=== PATIENT | female | born 1960 | race Caucasian/White ===

== ENCOUNTER 2017-07-04 13:42 | Inpatient (IN) ==
--- NOTE | 2017-07-04 16:36 | Emergency Department Note ---
Disposition Clinical Impression: Failure of outpatient treatment Cellulitis Qualifiers: Site of cellulitis: extremity Site of cellulitis of extremity: lower extremity Laterality: left Qualified Code(s): L03.116 - Cellulitis of left lower limb Disposition: Admitted As Inpatient Condition: Fair Referrals: NONE,PCP [Primary Care Provider] - Forms: ED Satisfaction Letter Time of Disposition: 18:13 Extremity Problem HPI - General Chief complaint: ED Extremity Problem,Nontraumatic Stated complaint: Possible DVT left leg Time Seen by Provider: 07/04/17 15:52 Source: patient Limitations: no limitations Nursing Notes Reviewed: Yes Vital Signs Reviewed: Yes - History of Present Illness HPI Narrative: Presents with gradual onset of constant left leg redness and swelling and pain and she has tried clindamycin and Keflex and Bactrim without adequate improvement by the primary care physician and so was sent here for IV antibiotics and admission and she denies any fevers now but has a temperature reaching 103 degrees earlier in the week and she does not have any chest pain or shortness of breath. No previous studies such as a Doppler study had not yet been done. No upper respiratory symptoms, blood in the urine or stool. Social history: No smoking or alcohol or drugs. She is here with her Pain Scale: 4 - Related Data Home Medications Medication Instructions Recorded Confirmed Clindamycin HCl 300 mg PO Q8H 07/04/17 07/04/17 Ibuprofen [Motrin] 400 mg PO Q6HR PRN 07/04/17 07/04/17 Sulfamethoxazole/Trimeth DS 1 each PO BID 07/04/17 07/04/17 [Bactrim DS] Allergies Allergy/AdvReac Type Severity Reaction Status Date / Time No Known Allergies Allergy Verified 07/04/17 16:25 Review of Systems: Constitutional: No fever Vision: No blurred vision ENT: No rhinorrhea Respiratory: No cough Allergic: No allergies : No blood in urine GI: No blood in stool Hematologic: No bruising Dermatologic: + skin rash Musculoskeletal: + pain in the extremities Neuro: No numbness of the extremities Past Medical History - Past Medical History Medical history: Reports: hypertension Psychiatric history: Reports: no psych history - Social History Smoking Status: Former smoker Smokeless Tobacco Status: No Alcohol use: Reports: none Drug use: Reports: none Physical Exam CONSTITUTIONAL: Alert and oriented X3, well-nourished, well appearing, in no apparent distress HEAD: Normocephalic; atraumatic. EYES: PERRL, no scleral icterus. NOSE: The nose is normal in appearance without rhinorrhea RESP: Normal chest excursion with respiration; breath sounds clear and equal bilaterally; no wheezes, rhonchi, or rales CARD: Regular rhythm, without murmurs, rub or gallop ABD: Non-distended; non-tender, soft,without rigidity, rebound or guarding SKIN: Normal for age and race; warm and dry; no apparent lesions Extremities: Left lower extremity does have significant erythema and edema reaching up to the knee. No crepitus with palpation. No fluctuance or necrotic areas. Neurovascular intact. Does have some pain with palpation but not a pain out of proportion - General Limitations: no limitations General appearance: alert Course Vital Signs Temperature 97.9 F 07/04/17 13:56 Pulse Rate 86 07/04/17 13:56 Respiratory Rate 16 07/04/17 13:56 Blood Pressure 133/76 07/04/17 13:56 O2 Sat by Pulse Oximetry 94 07/04/17 13:56 Temperature 97.9 F 07/04/17 13:56 Pulse Rate 74 07/04/17 16:40 Respiratory Rate 14 07/04/17 16:40 Blood Pressure 142/77 07/04/17 16:40 O2 Sat by Pulse Oximetry 98 07/04/17 16:40 Oxygen Delivery Oxygen Delivery Room Air Extremity Problem, Nontraumati - MDM Narrative Medical decision making narrative: Patient will be admitted to the hospital, labs are pending, the patient will be started on intravenous vancomycin. Doppler study is ordered and pending. She is bright and alert and she denies any confusion and does not seem confused while I am in the room. 1636 I did review the patient's lab results with minimal leukocytosis. Doppler study is negative for clot and I did speak with the body technician/painter. The patient will be admitted and has been started on vancomycin. I did speak with the hospitalist who accepted the patient for admission 181 - Medical Records Medical records reviewed: Yes I reviewed the patient's medical records. - Lab Data Lab results reviewed: Yes I reviewed the patient's lab results. Result diagrams: 07/04/17 16:19 07/04/17 16:19 Lab Results 07/04/17 07/04/17 07/04/17 Range/Units 16:19 16:19 16:19 WBC 11.8 H (4.3-11.1) K/mcL RBC 4.30 (3.82-4.97) M/mcL Hgb 12.1 (11.5-15.4) g/dL Hct 37.1 (35.3-44.9) % MCV 86.3 (83.0-100.0) fL MCH 28.1 (28.0-33.3) pg MCHC 32.6 (31.6-35.5) g/dL RDW 14.5 (11.5-14.5) % Plt Count 264 (140-400) K/mcL MPV 10.3 (9.4-12.4) fL Sodium 140 (136-145) mEq/L Potassium 4.0 (3.5-4.5) mEq/L Chloride 105 (98-109) mEq/L Carbon Dioxide 27 (19-29) mEq/L BUN 11 (7-20) mg/dL Creatinine 0.84 (0.57-1.11) mg/dL Est GFR ( Amer) > 60 (> 60) Est GFR (Non-Af Amer) > 60 (> 60) BUN/Creatinine Ratio 13 (6-26) Glucose 96 (70-99) mg/dL Calculated Osmolality 289 (280-300) Lactic Acid 1.7 (0.5-2.2) mmol/L Calcium 9.6 (8.6-10.8) mg/dL - Radiology Data Radiology results reviewed: Yes I reviewed the patient's radiology results.
[2017-07-04 16:42] LABS: Hematocrit 37.1 % (35.3-44.9); Hemoglobin 12.1 g/dL (11.5-15.4); Mean Corpuscular HGB Conc 32.6 g/dL (31.6-35.5); Mean Corpuscular Hemoglobin 28.1 pg (28.0-33.3); Mean Corpuscular Volume 86.3 fL (83.0-100.0); Mean Platelet Volume 10.3 fL (9.4-12.4); Platelet Count 264 K/mcL (140-400); Red Cell Distribution Width 14.5 % (11.5-14.5)
[2017-07-04 16:50] LABS: BUN/Creatinine Ratio 13 (6-26); Blood Urea Nitrogen 11 mg/dL (7-20); Calcium 9.6 mg/dL (8.6-10.8); Carbon Dioxide 27 mEq/L (19-29); Chloride 105 mEq/L (98-109); Glucose 96 mg/dL (70-99); Osmolality,Calculated 289 (280-300); Sodium 140 mEq/L (136-145); eGFR For African Americans > 60 (> 60); eGFR For Non-African Americans > 60 (> 60)
[2017-07-04] MEDS ORDERED: Vancomycin 1,250 MG in D5% in Water 250 ML IVPB ONE (17:15)
[2017-07-04] MEDS ORDERED: Ibuprofen 400 MG TABLET PO ONE (18:34)
[2017-07-04] MEDS ORDERED: Naloxone 0.4 MG/ML INJ IVP PRN (20:01)
--- NOTE | 2017-07-04 20:06 | Internal Med History&Physical ---
<Del Chao J - Last Filed: 07/04/17 20:04> Date of Encounter: 07/04/17 Time of Encounter: 20:04 Assessment and Plan (1) Cellulitis Current visit: Yes Status: Acute Left lower extremity cellulitis, does not appear toxic. Left lower extremity remains swollen, erythematous and painful. Upon my assessment clear drainage noted. Patient reports purulent drainage. Failed outpatient treatment with Keflex and clindamycin and Bactrim. Being admitted for IV antibiotic therapy, Vancomycin with pharmacy to dose for broad-spectrum coverage Wound culture-Narrow antibiotic therapy based on culture results Doppler study completed and negative for blood clot For pain management we will give ibuprofen for mild pain, [place] 5/325 for moderate pain Patient reports itching of the left lower extremity while trying to sleep. Benadryl 25 mg at at bedtime Qualifiers: Site of cellulitis: extremity Site of cellulitis of extremity: lower extremity Laterality: left Qualified Code(s): L03.116 - Cellulitis of left lower limb (2) Failure of outpatient treatment Current visit: Yes Status: Acute See above Internal Medicine - H&P: HPI Chief complaint: Failed outpatient treatment for cellulitis Admitted From: Home Plans for Post Hospital Care: Home History of present illness: Ms. Lyn is a 56 year old female with only past medical history of hypertension. Presents today to [facility] for left lower extremity cellulitis. She reports a gradual onset of left lower leg swelling with multiple wounds which she thought were spider bites. He is being treated by her primary care practitioner for cellulitis. Initial treatment involved Keflex however pain and swelling persisted. She was then placed on clindamycin and Bactrim without adequate improvement. She does admit to left lower extremity is less swollen and painful the beginning of the week. She does not appear toxic at this time. Admits to temperatures with a max of 103 earlier throughout the week for multiple days. She is afebrile at this time. Mild leukocytosis noted at 11.8 being admitted for failed outpatient treatment Past Med Surg Social Fam HX - Past Medical History Medical history: hypertension Psychiatric history: no psych history - Past Surgical History Surgical History: - Social History Smoking Status: Former smoker Smokeless Tobacco Status: No Alcohol use: none Drug use: none - Additional Family History Additional family history: Noncontributory Internal Medicine - H&P: Meds Clindamycin HCl 300 mg PO Q8H 07/04/17 [History] Ibuprofen [Motrin] 400 mg PO Q6HR PRN 07/04/17 [History] Sulfamethoxazole/Trimeth DS [Bactrim DS] 1 each PO BID 07/04/17 [History] 3 Allergy/AdvReac Type Severity Reaction Status Date / Time No Known Allergies Allergy Verified 07/04/17 16:25 All Systems PM: A 10-system review of systems was performed and is negative for pertinent findings except as documented above in the HPI. - Constitutional Constitutional: as per HPI, fatigue, fever(s), no chills, no night sweats - EENT Eyes: no change in vision, no discharge, no pain, no photophobia Ears: no ear discharge, no ear pain, no tinnitus Nose, mouth and throat: no dysphagia, no nasal discharge, no neck pain, no sore throat - Cardiovascular Cardiovascular ROS IM: no chest pain, no diaphoresis, no dyspnea, no lightheadedness, no palpitations, no syncope - Respiratory Respiratory: no cough, no dyspnea, no wheezing, no excessive phlegm production - Gastrointestinal Gastrointestinal: no abdominal pain, no diarrhea, no hematemesis, no hematochezia, no melena, no nausea, no vomiting - Genitourinary Genitourinary: no change in urinary stream, no dysuria, no flank pain, no hematuria - Musculoskeletal Musculoskeletal ROS IM: no joint swelling, no muscle weakness, no numbness, no tingling - Integumentary Integumentary IM: erythema, non-healing lesions, no rash, no unusual bruising Additional comments: Reporting multiple nonhealing skin lesions, cellulitis and purulent drainage with erythematous left lower extremity. - Neurological Neurological ROS: no confusion, no convulsions, no focal weakness, no numbness, no tingling, no tremor(s) - Hematologic/Lymphatic Hematologic/Lymphatic: no easy bruising - Constitutional Vitals: Temp Pulse Resp BP Pulse Ox 99.1 F 82 18 132/87 97 07/04/17 19:21 07/04/17 19:21 07/04/17 19:21 07/04/17 19:21 07/04/17 19:21 General appearance: Present: cooperative, A&O X 3, no acute distress, answers questions appropriately - Head Head exam: Present: atraumatic, normocephalic - Eye Eye exam: Present: EOMI, PERRL, conjuntiva pink, sclera anicteric Pupils: Present: PERRL - Neck Neck exam general surgery: Present: supple, trachea midline. Absent: lymphadenopathy - Respiratory Respiratory exam: Present: CTAB. Absent: accessory muscle use, rales, rhonchi, wheezes - Cardiovascular Cardiovascular exam: Present: RRR, +S1, +S2. Absent: diastolic murmur, gallop, rubs, systolic murmur - GI/Abdominal GI/Abdominal exam: Present: normal bowel sounds, soft, no peritoneal signs. Absent: distended, tenderness - Extremities Exam Extremities exam: Present: tenderness (LLE, venous Doppler study negative for clot), warm, radial pulses palpable and symmetrical. Absent: cyanotic (Well. LLE, venous Doppler study negative for clot), pedal edema Additional comments: Left lower extremity is erythematous and warm and tender. There is some clear drainage noted along posterior lateral calf. No circulatory compromise noted. Venous Doppler negative for VTE - Neurological Exam Neurological exam: Present: CN II-XII intact, oriented X3, no focal deficits. Absent: pronater drift, facial droop, speech deficit - Skin Skin exam: Present: dry, intact Internal Med - H&P Results - Labs CBC & Chem 7: 07/04/17 16:19 07/04/17 16:19 <Rivas Jordan H - Last Filed: 07/04/17 20:32> Date of Encounter: 07/04/17 Internal Medicine - H&P: HPI History of present illness: Ms. Lyn is a 56 year old female All Systems PM: A 10-system review of systems was performed and is negative for pertinent findings except as documented above in the HPI. - Constitutional Vitals: Temp Pulse Resp BP Pulse Ox 99.1 F 82 18 132/87 97 07/04/17 19:21 07/04/17 19:21 07/04/17 19:21 07/04/17 19:21 07/04/17 19:21 Internal Med - H&P Results - Labs CBC & Chem 7: 07/04/17 16:19 07/04/17 16:19 - Attending Attestation Left lower extremity cellulitis that failed outpatient treatment Continue vancomycin IV Hypertension, consider hydralazine IV as needed Order cultures Time spent this admission 40 minutes I have personally performed a face to face evaluation on this patient. I have reviewed and agree with the care plan. History and Exam by me shows:
[2017-07-04] MEDS ORDERED: Acetaminophen 325 MG TABLET PO PRN (20:30)
[2017-07-05] MEDS: *HR* HYDROcodone/Acet 5/325 mg TABLET PO PRN ×3 (01:21→15:55)
[2017-07-05] MEDS: *HR* Heparin 5,000 UNIT/ML VIAL SQ SCH ×2 (05:31→18:55)
[2017-07-05 05:32] LABS: Basophils # 0.1 K/mcL (0.0-0.2); Basophils % 0.8 %; Eosinophils # 0.3 K/mcL (0.0-0.6); Eosinophils % 2.9 %; Hematocrit 36.6 % (35.3-44.9); Hemoglobin 11.6 g/dL (11.5-15.4); Immature Granulocytes % 4.9 % (0-4); Lymphocytes # 2.5 K/mcL (0.6-4.6); Lymphocytes % 22.8 %; Mean Corpuscular HGB Conc 31.7 g/dL (31.6-35.5); Mean Corpuscular Hemoglobin 27.7 pg (28.0-33.3); Mean Corpuscular Volume 87.4 fL (83.0-100.0); Mean Platelet Volume 10.2 fL (9.4-12.4); Monocytes # 0.8 K/mcL (0.0-1.3); Monocytes % 7.7 %; Neutrophils # 6.6 K/mcL (1.6-8.9); Platelet Count 246 K/mcL (140-400); Red Blood Count 4.19 M/mcL (3.82-4.97); Red Cell Distribution Width 14.4 % (11.5-14.5); Segmented Neutrophils % 60.9 %
[2017-07-05 05:50] LABS: Alanine Aminotransferase 52 Units/L (0-55); Albumin 2.6 g/dL (3.5-5.0); Albumin/Globulin Ratio 0.5 (1.1-2.2); Alkaline Phosphatase 107 Units/L (38-126); Aspartate Amino Transferase 23 Units/L (5-34); BUN/Creatinine Ratio 15 (6-26); Bilirubin,Total 0.2 mg/dL (0.2-1.2); Blood Urea Nitrogen 12 mg/dL (7-20); Carbon Dioxide 25 mEq/L (19-29); Chloride 107 mEq/L (98-109); Glucose 121 mg/dL (70-99); Osmolality,Calculated 289 (280-300); Potassium 4.6 mEq/L (3.5-4.5); Sodium 139 mEq/L (136-145); Total Protein 7.6 g/dL (6.0-8.3); eGFR For African Americans > 60 (> 60); eGFR For Non-African Americans > 60 (> 60)
[2017-07-05] MEDS ORDERED: Vancomycin 1,250 MG in D5% in Water 250 ML IVPB SCH (09:00)
[2017-07-05] MEDS: Vancomycin 1,250 MG in D5% in Water 250 ML IVPB SCH ×2 (09:32→20:50)
--- NOTE | 2017-07-05 17:39 | Internal Med Progress Note ---
Date of Encounter: 07/05/17 Time of Encounter: 14:40 - Assessment and plan (1) Cellulitis Current Visit: Yes Status: Acute Assessment and plan: Patient has significant cellulitis. Add Levaquin, counseling about NI hose and Glen wrap. Close monitoring of patient condition Qualifiers: Site of cellulitis: extremity Site of cellulitis of extremity: lower extremity Laterality: left Qualified Code(s): L03.116 - Cellulitis of left lower limb (2) Failure of outpatient treatment Current Visit: Yes Status: Acute (3) HTN (hypertension) Current Visit: Yes Status: Acute Qualifiers: Hypertension type: essential hypertension Qualified Code(s): I10 - Essential (primary) hypertension - Time Spent With Patient Patient need aggressive compression therapy left lower extremity , continue current antibiotic, adjust pain medication as needed, titrate antibiotic. Patient is hospice stay more than 2 midnight 25 - 35 minutes - Subjective Interval history: Patient complaining of pain and redness left lower extremity is 7 out of 10 in severity , very hard to ambulate, Patient denies any fever or chills - Constitutional Vitals: Temp Pulse Resp BP Pulse Ox 99.3 F 76 18 144/76 95 07/05/17 16:29 07/05/17 16:29 07/05/17 16:29 07/05/17 16:29 07/05/17 16:29 General appearance: Present: cooperative, A&O X 3, no acute distress, answers questions appropriately - Head Head exam: Present: atraumatic, normocephalic - Neck Neck exam general surgery: Present: supple, trachea midline. Absent: lymphadenopathy - Respiratory Respiratory exam: Present: CTAB. Absent: accessory muscle use, rales, rhonchi, wheezes - Cardiovascular Cardiovascular exam: Present: RRR, +S1, +S2. Absent: diastolic murmur, gallop, rubs, systolic murmur - GI/Abdominal GI/Abdominal exam: Present: normal bowel sounds, soft, no peritoneal signs. Absent: distended, tenderness - Extremities Exam Extremities exam: Present: calf tenderness, pedal edema. Absent: cyanotic Additional comments: Left Lower extremities marketed swelling up to the knee with the marked erythema. Small blisters, tender to touch, positive 3 edema left lower extremities - Neurological Exam Neurological exam: Present: CN II-XII intact, oriented X3, no focal deficits. Absent: pronater drift, facial droop, speech deficit - Skin Skin exam: Present: dry, intact Internal Medicine: Result - Labs CBC & Chem 7: 07/05/17 05:21 07/05/17 05:21 Labs: Short CBC 07/05/17 Range/Units 05:21 WBC 10.8 (4.3-11.1) K/mcL Hgb 11.6 (11.5-15.4) g/dL Hct 36.6 (35.3-44.9) % Plt Count 246 (140-400) K/mcL Neutrophils # 6.6 (1.6-8.9) K/mcL BMP 07/05/17 05:21 Sodium 139 Potassium 4.6 H Chloride 107 Carbon Dioxide 25 BUN 12 Creatinine 0.82 Glucose 121 H Calcium 9.0 Liver Function 07/05/17 Range/Units 05:21 Total Bilirubin 0.2 (0.2-1.2) mg/dL AST 23 (5-34) Units/L ALT 52 (0-55) Units/L Alkaline Phosphatase 107 (38-126) Units/L Albumin 2.6 L (3.5-5.0) g/dL Consult Discharge Plan - Plan Referrals: NONE,PCP [Primary Care Provider] -
[2017-07-05] MEDS: Levofloxacin 750 MG/150 ML 750 MG/150 ML BAG IVPB SCH (18:55)
[2017-07-05] MEDS: Ibuprofen 400 MG TABLET PO PRN (20:50)
[2017-07-06] MEDS: *HR* HYDROcodone/Acet 5/325 mg TABLET PO PRN (02:41)
[2017-07-06] MEDS: *HR* Heparin 5,000 UNIT/ML VIAL SQ SCH ×2 (06:30→18:01)
--- NOTE | 2017-07-06 08:59 | Internal Med Progress Note ---
Date of Encounter: 07/06/17 Time of Encounter: 08:56 - Assessment and plan (1) Cellulitis Current Visit: Yes Status: Acute Assessment and plan: Continue current antibiotic, MRSA screening, if culture negative by tomorrow with discharged home on clindamycin Qualifiers: Site of cellulitis: extremity Site of cellulitis of extremity: lower extremity Laterality: left Qualified Code(s): L03.116 - Cellulitis of left lower limb (2) Failure of outpatient treatment Current Visit: Yes Status: Acute (3) HTN (hypertension) Current Visit: Yes Status: Acute Assessment and plan: Controlled Qualifiers: Hypertension type: essential hypertension Qualified Code(s): I10 - Essential (primary) hypertension - Time Spent With Patient Counseling patient again about compression stocking, Counselling patient to avoid any scratching 25 - 35 minutes - Subjective Interval history: Left lower extremity pain and erythema and swelling is improving. Pain Worse with standing and ambulation - Constitutional Vitals: Temp Pulse Resp BP Pulse Ox 98.2 F 87 22 137/77 93 07/06/17 07:35 07/06/17 07:35 07/06/17 07:35 07/06/17 07:35 07/06/17 07:35 General appearance: Present: cooperative, A&O X 3, no acute distress, answers questions appropriately - Head Head exam: Present: atraumatic, normocephalic - Neck Neck exam general surgery: Present: supple, trachea midline. Absent: lymphadenopathy - Respiratory Respiratory exam: Present: CTAB. Absent: accessory muscle use, rales, rhonchi, wheezes - Cardiovascular Cardiovascular exam: Present: RRR, +S1, +S2. Absent: diastolic murmur, gallop, rubs, systolic murmur - GI/Abdominal GI/Abdominal exam: Present: normal bowel sounds, soft, no peritoneal signs. Absent: distended, tenderness - Extremities Exam Extremities exam: Present: pedal edema (Left lower extremity swelling redness is 50% better compared to yesterday, is still warm to touch), warm, radial pulses palpable and symmetrical - Neurological Exam Neurological exam: Present: CN II-XII intact, oriented X3, no focal deficits. Absent: pronater drift, facial droop, speech deficit Internal Medicine: Result - Labs CBC & Chem 7: 07/05/17 05:21 07/05/17 05:21 - VTE Documentation of Mechanical Device: Graduated compression elastic hosiery Consult Discharge Plan - Plan Referrals: NONE,PCP [Primary Care Provider] -
[2017-07-06] MEDS ORDERED: Vancomycin 1,500 MG in D5% in Water 250 ML IVPB SCH (12:00)
[2017-07-06 12:13] LABS: BUN/Creatinine Ratio 13 (6-26); Blood Urea Nitrogen 10 mg/dL (7-20); eGFR For African Americans > 60 (> 60); eGFR For Non-African Americans > 60 (> 60)
[2017-07-06] MEDS: Ibuprofen 400 MG TABLET PO PRN (12:52)
[2017-07-06 15:57] VITALS: BP 127/79
[2017-07-06] MEDS: Levofloxacin 750 MG/150 ML 750 MG/150 ML BAG IVPB SCH (18:00)
--- NOTE | 2017-07-06 18:43 | Discharge Summary ---
Date of Encounter: 07/06/17 Time of Encounter: 06:00 - Discharge Diagnosis (1) Cellulitis Priority: Primary Status: Acute Qualifiers: Site of cellulitis: extremity Site of cellulitis of extremity: lower extremity Laterality: left Qualified Code(s): L03.116 - Cellulitis of left lower limb (2) Failure of outpatient treatment Priority: Secondary Status: Acute (3) HTN (hypertension) Priority: Secondary Status: Acute Qualifiers: Hypertension type: essential hypertension Qualified Code(s): I10 - Essential (primary) hypertension - Discharge Medications Prescriptions: levoFLOXacin [Levaquin] 500 mg PO DAILY #10 tablet Mupirocin [Bactroban Oint] 22 gm TP BID #2 tube Home Medications: Clindamycin HCl 300 mg PO Q8H 07/04/17 [History] Sulfamethoxazole/Trimeth DS [Bactrim DS] 1 each PO BID 07/04/17 [History] Acetaminophen [Tylenol] 650 mg PO Q6HR PRN tablet 07/06/17 [Rx] HYDROcodone/Acet 5/325 mg [[place] 5-325 mg] 1 tab PO Q6HR PRN tablet 07/06/17 [ Rx] Mupirocin [Bactroban Oint] 22 gm TP BID #2 tube 07/06/17 [Rx] levoFLOXacin [Levaquin] 500 mg PO DAILY #10 tablet 07/06/17 [Rx] Allergies/Adverse Reactions: 3 Allergy/AdvReac Type Severity Reaction Status Date / Time No Known Allergies Allergy Verified 07/04/17 16:25 Date of admission: 07/04/17 18:20 Primary care physician: PCP NONE Discharging clinician: Yvette Chaudhari Anticipated date of discharge: 07/06/17 - Patient Status Disposition: Home, Self-Care Condition: Good Functional capacity at discharge: independent ambulation Overall status at discharge: patient is progressing back to baseline - Discharge Instructions Instructions: Cellulitis (DC), Chronic Hypertension (DC) Follow Up With: NONE,PCP [Primary Care Provider] - (Patient to make follow up appointment with non [facility] PCP. Unable to do so d/t the weekend.) - Diet and Activity Activity: resume usual activities as tolerated Diet: low salt diet Hospital course: Ms. Lyn is a 56 year old female Presented to [facility] with left lower extremity cellulitis. She reports a gradual onset of left lower leg swelling with multiple wounds which she thought were spider bites. He is being treated by her primary care practitioner for cellulitis. Initial treatment involved Keflex however pain and swelling persisted. She was then placed on clindamycin and Bactrim without adequate improvement. With her progressive foot pain and swelling and redness and starting to have fever MAXIMUM TEMPERATURE 103 , patient was admitted to the hospital start patient empirically on vancomycin and Levaquin. Start compression therapy. Patient had marked improvement. Patient was eager to go home. Patient discharged home on Levaquin in addition to Bactroban cream for open area. Counseling about compression therapy. Blood culture pending to be followed by family doctor and change antibiotics accordingly. - Time Spent with Patient Total time spent providing and/or coordinating discharge services: Greater than 30 minutes - Constitutional Vitals: Temp Pulse Resp BP Pulse Ox 98.4 F 84 22 127/79 94 07/06/17 15:55 07/06/17 15:55 07/06/17 15:55 07/06/17 15:55 07/06/17 15:55 General appearance: Present: cooperative, A&O X 3, no acute distress, answers questions appropriately - Head Head exam: Present: atraumatic, normocephalic - Eye Eye exam: Present: conjuntiva pink, sclera anicteric - Neck Neck exam general surgery: Present: supple, trachea midline. Absent: lymphadenopathy - Respiratory Respiratory exam: Present: CTAB. Absent: accessory muscle use, rales, rhonchi, wheezes - Cardiovascular Cardiovascular exam: Present: RRR, +S1, +S2. Absent: diastolic murmur, gallop, rubs, systolic murmur - GI/Abdominal GI/Abdominal exam: Present: normal bowel sounds, soft, no peritoneal signs. Absent: distended, tenderness - Extremities Exam Extremities exam: Present: pedal edema (Positive two lift lower extremities marked improvement of redness and erythema compared to admission), warm, radial pulses palpable and symmetrical. Absent: cyanotic - Neurological Exam Neurological exam: Present: CN II-XII intact, oriented X3, no focal deficits. Absent: pronater drift, facial droop, speech deficit - VTE Documentation of Mechanical Device: Graduated compression elastic hosiery
[2017-07-06] MEDS ORDERED: FLUARIX QUAD 2017-18 36MOS UP/PF 0.5 ML SYRINGE IM ONE (18:56)
[2017-07-06] MEDS ORDERED: Aminoglycoside Consult 1 EACH MC ONE (19:44)
== END 2017-07-06 19:45 | disposition home or self-care (01) | DRG 603 ==
LOC: EMEROO 13:42 → 3NENU 18:20
PROVIDERS: ADMIT Hospitalist; ATTEND Internal Medicine

== ENCOUNTER 2022-03-02 19:32 | Inpatient (IN) ==
[2022-03-02] MEDS ORDERED: Ipratropium/Albuterol Neb 3 ML IH ONE (19:49)
[2022-03-02 20:03] LABS: Basophils % 0.2 %; Eosinophils % 0.3 %; Hematocrit 35.8 % (35.3-44.9); Hemoglobin 10.7 g/dL (11.5-15.4); Immature Granulocytes % 0.7 % (0-4); Lymphocytes # 1.5 K/mcL (0.6-4.6); Lymphocytes % 13.3 %; Mean Corpuscular HGB Conc 29.9 g/dL (31.6-35.5); Mean Corpuscular Hemoglobin 25.2 pg (28.0-33.3); Mean Corpuscular Volume 84.4 fL (83.0-100.0); Mean Platelet Volume 9.4 fL (9.4-12.4); Monocytes # 0.5 K/mcL (0.0-1.3); Neutrophils # 9.3 K/mcL (1.6-8.9); Platelet Count 332 K/mcL (140-400); Red Blood Count 4.24 M/mcL (3.82-4.97); Red Cell Distribution Width 17.3 % (11.5-14.5); Segmented Neutrophils % 81.5 %; White Blood Count 11.4 K/mcL (4.3-11.1)
[2022-03-02 20:11] LABS: INR 1.5; Prothrombin Time 16.4 Seconds (9.4-12.1)
[2022-03-02 20:14] LABS: Activated Partial Thrombo Time 31.7 Seconds (26.0-36.0)
[2022-03-02 20:24] LABS: Alanine Aminotransferase 34 Units/L (7-52); Albumin 2.9 g/dL (3.5-5.7); Albumin/Globulin Ratio 0.6 (1.1-2.2); Alkaline Phosphatase 104 Units/L (34-104); Aspartate Amino Transferase 16 Units/L (13-39); BUN/Creatinine Ratio 18 (6-26); Bilirubin,Direct 0.2 mg/dL (0.0-0.2); Bilirubin,Indirect 0.3 mg/dL (0.0-1.0); Bilirubin,Total 0.5 mg/dL (0.3-1.0); Blood Urea Nitrogen 13 mg/dL (8-23); Calcium 9.2 mg/dL (8.6-10.3); Carbon Dioxide 35 mEq/L (23-29); Chloride 95 mEq/L (98-107); Globulin 4.6 g/dL (2.4-3.5); Glucose 301 mg/dL (70-105); Osmolality,Calculated 293 (280-300); Potassium 4.1 mEq/L (3.5-5.1); Sodium 136 mEq/L (136-145); Total Protein 7.5 g/dL (6.4-8.9); Troponin I < 0.03 ng/mL (< 0.04); eGFR For African Americans > 60 (> 60); eGFR For Non-African Americans > 60 (> 60)
[2022-03-02 21:10] LABS: Influenza A PCR Negative (Negative); Influenza B PCR Negative (Negative); Resp. Syncytial Virus PCR Negative (Negative)
[2022-03-02 21:17] LABS: SARS-CoV-2 by PCR (In House) Negative (Negative)
[2022-03-02] MEDS ORDERED: Piperacillin/Tazobactam 3.375 GM in 0.9 % Sodium Chloride Mini Bag 100 ML IVPB ONE (22:03)
[2022-03-02] MEDS ORDERED: levoFLOXacin 500 MG/100 ML 500 MG/100 ML BAG IVPB ONE (22:04)
[2022-03-02] MEDS ORDERED: Iopamidol - 370 500 ML MLS IVP ONE (22:06)
[2022-03-03 01:13] LABS: VBG HCO3 34 mEq/L (21-27); VBG PCO2 70 mmHg (41-51); VBG PO2 99 mmHg (25-50)
[2022-03-03] MEDS ORDERED: 0.9 % Sodium Chloride 1,000 ML IV ONE (02:08)
[2022-03-03] MEDS ORDERED: Naloxone 0.4 MG/ML INJ IVP PRN (05:35)
[2022-03-03] MEDS ORDERED: Perflutren Lipid Microsphere 1.3 ML in 0.9 % Sodium Chloride 8.7 ML IVP PRN (06:21)
[2022-03-03] MEDS ORDERED: Azithromycin 500 MG in 0.9 % Sodium Chloride 250 ML IVPB SCH (07:00)
[2022-03-03] MEDS ORDERED: Vancomycin 1,500 MG/265 ML IV.SOLN IVPB ONE (07:00)
[2022-03-03] MEDS: Piperacillin/Tazobactam 3.375 GM in 0.9 % Sodium Chloride Mini Bag 100 ML IVPB SCH ×3 (09:02→23:31)
[2022-03-03 10:40] LABS: VBG HCO3 33 mEq/L (21-27); VBG PCO2 61 mmHg (41-51); VBG PH 7.33 pH Units (7.32-7.42); VBG PO2 105 mmHg (25-50)
[2022-03-03 10:46] LABS: Red Cell Distribution Width 17.1 % (11.5-14.5)
[2022-03-03 10:48] LABS: Hemoglobin 10.2 g/dL (11.5-15.4); Mean Corpuscular HGB Conc 28.3 g/dL (31.6-35.5); Mean Corpuscular Hemoglobin 24.9 pg (28.0-33.3); Mean Corpuscular Volume 87.8 fL (83.0-100.0); Mean Platelet Volume 9.7 fL (9.4-12.4); Platelet Count 298 K/mcL (140-400); White Blood Count 10.2 K/mcL (4.3-11.1)
[2022-03-03 11:02] LABS: BUN/Creatinine Ratio 23 (6-26); Blood Urea Nitrogen 15 mg/dL (8-23); Calcium 8.9 mg/dL (8.6-10.3); Carbon Dioxide 37 mEq/L (23-29); Chloride 96 mEq/L (98-107); Glucose 154 mg/dL (70-105); Lactate Dehydrogenase 153 Units/L (140-271); Osmolality,Calculated 288 (280-300); Potassium 4.2 mEq/L (3.5-5.1); Sodium 137 mEq/L (136-145); Total Protein 7.1 g/dL (6.4-8.9); eGFR For African Americans > 60 (> 60); eGFR For Non-African Americans > 60 (> 60)
[2022-03-03] MEDS ORDERED: Ipratropium/Albuterol Neb 3 ML IH SCH (12:00)
[2022-03-03] MEDS ORDERED: GuaiFENesin/Dextromethorphan TABLET PO PRN (12:02)
[2022-03-03] MEDS ORDERED: Vancomycin 1,500 MG/265 ML IV.SOLN IVPB SCH ×2 (13:00→20:00)
[2022-03-03] MEDS: Ipratropium/Albuterol Neb 3 ML IH PRN ×2 (15:29→22:18)
[2022-03-03] MEDS ORDERED: Iopamidol - 370 500 ML MLS IVP ONE (16:26)
[2022-03-03 19:03] LABS: Appearance of Pleural Fl Cloudy (Clear)
[2022-03-04] MEDS ORDERED: Morphine Sulfate 2 MG/ML SYRINGE IVP ONE (00:44)
[2022-03-04 01:01] LABS: ABG Base Excess 10 mEq/L (-2 to 3); ABG HCO3 40 mEq/L (21-27); ABG Oxygen Saturation 87 % (95-98); ABG PCO2 82 mmHg (35-45); ABG PO2 62 mmHg (85-104); ABG TCO2 43 mEq/L (20-26)
[2022-03-04] MEDS: Vancomycin 1,500 MG/265 ML IV.SOLN IVPB SCH ×2 (02:11→15:51)
[2022-03-04 03:25] LABS: Basophils % 0.4 %; Mean Corpuscular HGB Conc 27.9 g/dL (31.6-35.5)
[2022-03-04 03:27] LABS: Eosinophils # 0.1 K/mcL (0.0-0.6); Eosinophils % 0.7 %; Hematocrit 39.1 % (35.3-44.9); Hemoglobin 10.9 g/dL (11.5-15.4); Immature Granulocytes % 0.7 % (0-4); Lymphocytes # 1.5 K/mcL (0.6-4.6); Lymphocytes % 13.8 %; Mean Corpuscular Hemoglobin 24.8 pg (28.0-33.3); Mean Corpuscular Volume 88.9 fL (83.0-100.0); Mean Platelet Volume 9.6 fL (9.4-12.4); Monocytes # 0.8 K/mcL (0.0-1.3); Monocytes % 7.2 %; Neutrophils # 8.4 K/mcL (1.6-8.9); Platelet Count 312 K/mcL (140-400); Segmented Neutrophils % 77.2 %; White Blood Count 10.9 K/mcL (4.3-11.1)
[2022-03-04 03:49] LABS: BUN/Creatinine Ratio 16 (6-26); Blood Urea Nitrogen 11 mg/dL (8-23); C-Reactive Protein 121 mg/L (Less than 10); Calcium 8.9 mg/dL (8.6-10.3); Carbon Dioxide 36 mEq/L (23-29); Chloride 97 mEq/L (98-107); Glucose 147 mg/dL (70-105); Osmolality,Calculated 286 (280-300); Potassium 4.7 mEq/L (3.5-5.1); Sodium 137 mEq/L (136-145); eGFR For African Americans > 60 (> 60); eGFR For Non-African Americans > 60 (> 60)
[2022-03-04] MEDS: Ipratropium/Albuterol Neb 3 ML IH PRN ×4 (03:50→19:54)
[2022-03-04 04:30] LABS: Hypochromasia Present (Not Present); Platelet Estimate Normal (Normal)
[2022-03-04] MEDS: *HR* Enoxaparin 40 MG/0.4 ML SYRINGE SQ SCH (05:06)
[2022-03-04] MEDS: Piperacillin/Tazobactam 3.375 GM in 0.9 % Sodium Chloride Mini Bag 100 ML IVPB SCH ×2 (08:48→15:51)
[2022-03-04 10:16] LABS: ABG Base Excess 7 mEq/L (-2 to 3); ABG HCO3 38 mEq/L (21-27); ABG Oxygen Saturation 86 % (95-98); ABG PCO2 86 mmHg (35-45); ABG PH 7.25 pH Units (7.32-7.45); ABG PO2 63 mmHg (85-104); ABG TCO2 40 mEq/L (20-26)
[2022-03-04] MEDS: GuaiFENesin/Codeine Oral Soln 5 ML UDC PO PRN (14:35)
[2022-03-04 19:36] LABS: ABG Base Excess 6 mEq/L (-2 to 3); ABG HCO3 36 mEq/L (21-27); ABG Oxygen Saturation 96 % (95-98); ABG PCO2 89 mmHg (35-45); ABG PH 7.22 pH Units (7.32-7.45); ABG PO2 103 mmHg (85-104); ABG TCO2 39 mEq/L (20-26)
[2022-03-04 21:57] LABS: ABG Base Excess 5 mEq/L (-2 to 3); ABG HCO3 34 mEq/L (21-27); ABG Oxygen Saturation 98 % (95-98); ABG PCO2 71 mmHg (35-45); ABG PH 7.28 pH Units (7.32-7.45); ABG PO2 112 mmHg (85-104); ABG TCO2 36 mEq/L (20-26); Blood Gas Modality avaps; Blood Gas VT 550 cc
[2022-03-05] MEDS: Piperacillin/Tazobactam 3.375 GM in 0.9 % Sodium Chloride Mini Bag 100 ML IVPB SCH ×3 (00:39→15:45)
[2022-03-05 03:12] LABS: Hemoglobin 10.1 g/dL (11.5-15.4); Mean Platelet Volume 9.6 fL (9.4-12.4); Segmented Neutrophils % 74.9 %
[2022-03-05 03:14] LABS: Basophils % 0.5 %; Eosinophils # 0.1 K/mcL (0.0-0.6); Eosinophils % 0.9 %; Hematocrit 35.4 % (35.3-44.9); Immature Granulocytes % 0.7 % (0-4); Lymphocytes # 1.2 K/mcL (0.6-4.6); Lymphocytes % 15.3 %; Mean Corpuscular HGB Conc 28.5 g/dL (31.6-35.5); Mean Corpuscular Hemoglobin 25.3 pg (28.0-33.3); Mean Corpuscular Volume 88.5 fL (83.0-100.0); Monocytes # 0.6 K/mcL (0.0-1.3); Monocytes % 7.7 %; Neutrophils # 5.7 K/mcL (1.6-8.9); Platelet Count 216 K/mcL (140-400); Red Cell Distribution Width 16.7 % (11.5-14.5); White Blood Count 7.6 K/mcL (4.3-11.1)
[2022-03-05 03:32] LABS: BUN/Creatinine Ratio 18 (6-26); Blood Urea Nitrogen 10 mg/dL (8-23); Calcium 8.8 mg/dL (8.6-10.3); Carbon Dioxide 37 mEq/L (23-29); Chloride 98 mEq/L (98-107); Glucose 126 mg/dL (70-105); Osmolality,Calculated 287 (280-300); Potassium 4.5 mEq/L (3.5-5.1); Sodium 138 mEq/L (136-145); Vancomycin,Trough 12 mcg/mL (5-10); eGFR For African Americans > 60 (> 60); eGFR For Non-African Americans > 60 (> 60)
[2022-03-05] MEDS: Ipratropium/Albuterol Neb 3 ML IH PRN ×4 (03:34→23:32)
[2022-03-05 04:07] LABS: Hypochromasia Present (Not Present); Platelet Estimate Normal (Normal)
[2022-03-05] MEDS: Vancomycin 1,750 MG/517.5 ML IV.SOLN IVPB SCH ×2 (04:30→17:55)
[2022-03-05] MEDS: *HR* Enoxaparin 40 MG/0.4 ML SYRINGE SQ SCH (06:11)
[2022-03-05] MEDS: GuaiFENesin/Codeine Oral Soln 5 ML UDC PO PRN ×2 (10:39→17:58)
[2022-03-05] MEDS ORDERED: Ibuprofen 600 MG TABLET PO PRN (15:47)
[2022-03-05] MEDS ORDERED: Dextrose Gel 15 GM/37.5 ML TUBE PO PRN ×2 (15:48)
[2022-03-05] MEDS ORDERED: *HR* Dextrose 50 % in Water (Syg) 50 ML SYRINGE IVP PRN (15:48)
[2022-03-05] MEDS ORDERED: D5% in Water 1,000 ML IVC PRN (15:48)
[2022-03-05] MEDS ORDERED: Acetaminophen 325 MG TABLET PO PRN (17:45)
[2022-03-05] MEDS: Insulin LISPRO 300 UNITS/3 ML VIAL SUBQ SCH ×2 (18:17→21:12)
[2022-03-05] MEDS: Dexmedetomidine HCl 400 MCG/100 ML MLS IVC SCH (21:13)
[2022-03-06] MEDS: Piperacillin/Tazobactam 3.375 GM in 0.9 % Sodium Chloride Mini Bag 100 ML IVPB SCH ×4 (00:02→23:55)
[2022-03-06] MEDS: *HR* Enoxaparin 40 MG/0.4 ML SYRINGE SQ SCH (05:49)
[2022-03-06] MEDS: Vancomycin 1,750 MG/517.5 ML IV.SOLN IVPB SCH ×2 (05:50→20:33)
[2022-03-06 06:08] LABS: ABG Base Excess 7 mEq/L (-2 to 3); ABG HCO3 33 mEq/L (21-27); ABG Oxygen Saturation 96 % (95-98); ABG PCO2 55 mmHg (35-45); ABG PH 7.39 pH Units (7.32-7.45); ABG PO2 83 mmHg (85-104); ABG TCO2 35 mEq/L (20-26)
[2022-03-06 06:50] LABS: VBG Ionized Calcium 1.09 mmol/L (1.15-1.35)
[2022-03-06 06:57] LABS: Basophils # 0.1 K/mcL (0.0-0.2); Basophils % 0.8 %; Eosinophils # 0.1 K/mcL (0.0-0.6); Eosinophils % 1.8 %; Hematocrit 32.7 % (35.3-44.9); Hemoglobin 9.4 g/dL (11.5-15.4); Immature Granulocytes % 0.8 % (0-4); Immature Platelets 5.5 % (1.1-6.1); Lymphocytes # 1.5 K/mcL (0.6-4.6); Lymphocytes % 22.8 %; Mean Corpuscular HGB Conc 28.7 g/dL (31.6-35.5); Mean Corpuscular Hemoglobin 25.3 pg (28.0-33.3); Mean Corpuscular Volume 88.1 fL (83.0-100.0); Mean Platelet Volume 11.1 fL (9.4-12.4); Monocytes # 0.5 K/mcL (0.0-1.3); Monocytes % 6.9 %; Neutrophils # 4.5 K/mcL (1.6-8.9); Nucleated Red Blood Cells 0.3 /100 WBC (0); Platelet Count 188 K/mcL (140-400); Red Blood Count 3.71 M/mcL (3.82-4.97); Red Cell Distribution Width 16.7 % (11.5-14.5); Segmented Neutrophils % 66.9 %; White Blood Count 6.7 K/mcL (4.3-11.1)
[2022-03-06 07:17] LABS: BUN/Creatinine Ratio 16 (6-26); Blood Urea Nitrogen 15 mg/dL (8-23); Calcium 8.2 mg/dL (8.6-10.3); Carbon Dioxide 32 mEq/L (23-29); Chloride 98 mEq/L (98-107); Glucose 162 mg/dL (70-105); Osmolality,Calculated 284 (280-300); Potassium 4.7 mEq/L (3.5-5.1); Sodium 135 mEq/L (136-145); eGFR For African Americans > 60 (> 60); eGFR For Non-African Americans > 60 (> 60)
[2022-03-06 07:52] LABS: Albumin 2.5 g/dL (3.5-5.7); Albumin/Globulin Ratio 0.7 (1.1-2.2); Bilirubin,Indirect 0.4 mg/dL (0.0-1.0); Bilirubin,Total 0.4 mg/dL (0.3-1.0); Globulin 3.4 g/dL (2.4-3.5); Phosphorous 2.8 mg/dL (2.7-4.5); Total Protein 5.9 g/dL (6.4-8.9)
[2022-03-06] MEDS: GuaiFENesin/Codeine Oral Soln 5 ML UDC PO PRN ×3 (09:20→22:18)
[2022-03-06] MEDS: Insulin LISPRO 300 UNITS/3 ML VIAL SUBQ SCH ×4 (11:47→23:55)
[2022-03-06] MEDS: Dexmedetomidine HCl 400 MCG/100 ML MLS IVC SCH (16:13)
[2022-03-06] MEDS: Ipratropium/Albuterol Neb 3 ML IH PRN (20:24)
[2022-03-06] MEDS: Vancomycin 1,500 MG/265 ML IV.SOLN IVPB SCH (20:35)
[2022-03-07] MEDS: GuaiFENesin/Codeine Oral Soln 5 ML UDC PO PRN (05:11)
[2022-03-07 05:29] LABS: VBG Ionized Calcium 1.22 mmol/L (1.15-1.35)
[2022-03-07 05:44] LABS: Basophils % 0.7 %; Eosinophils % 1.8 %; Hematocrit 36.7 % (35.3-44.9); Hemoglobin 10.4 g/dL (11.5-15.4); Mean Corpuscular HGB Conc 28.3 g/dL (31.6-35.5)
[2022-03-07 05:46] LABS: Basophils # 0.1 K/mcL (0.0-0.2); Eosinophils # 0.1 K/mcL (0.0-0.6); Immature Granulocytes % 0.4 % (0-4); Lymphocytes # 1.9 K/mcL (0.6-4.6); Lymphocytes % 24.6 %; Mean Corpuscular Hemoglobin 24.3 pg (28.0-33.3); Mean Corpuscular Volume 85.7 fL (83.0-100.0); Mean Platelet Volume 9.6 fL (9.4-12.4); Monocytes # 0.4 K/mcL (0.0-1.3); Monocytes % 5.7 %; Neutrophils # 5.1 K/mcL (1.6-8.9); Platelet Count 255 K/mcL (140-400); Red Blood Count 4.28 M/mcL (3.82-4.97); Red Cell Distribution Width 16.9 % (11.5-14.5); Segmented Neutrophils % 66.8 %; White Blood Count 7.6 K/mcL (4.3-11.1)
[2022-03-07 06:04] LABS: BUN/Creatinine Ratio 14 (6-26); Blood Urea Nitrogen 14 mg/dL (8-23); Calcium 8.6 mg/dL (8.6-10.3); Carbon Dioxide 38 mEq/L (23-29); Chloride 99 mEq/L (98-107); Glucose 135 mg/dL (70-105); Magnesium 2.1 mg/dL (1.6-2.6); Osmolality,Calculated 293 (280-300); Phosphorous 3.6 mg/dL (2.7-4.5); Potassium 3.9 mEq/L (3.5-5.1); Sodium 140 mEq/L (136-145); eGFR For African Americans > 60 (> 60); eGFR For Non-African Americans 55 (> 60)
[2022-03-07 06:23] LABS: Platelet Estimate Normal (Normal)
[2022-03-07] MEDS ORDERED: *HR* Propofol 200 MG/20 ML VIAL IVP ONE (07:13)
[2022-03-07] MEDS: Ipratropium/Albuterol Neb 3 ML IH PRN ×3 (07:13→16:03)
[2022-03-07] MEDS ORDERED: *HR* FentaNYL (PF) 100 MCG/2 ML VIAL ONE ×2 (07:14→09:29)
[2022-03-07] MEDS ORDERED: *HR* Midazolam HCl 2 MG/2 ML VIAL ONE (07:14)
[2022-03-07] MEDS ORDERED: Ondansetron 4 MG/2 ML VIAL ONE (07:16)
[2022-03-07] MEDS ORDERED: *HR* Rocuronium Bromide 50 MG/5 ML VIAL ONE (07:16)
[2022-03-07] MEDS ORDERED: Lidocaine -MPF 2% 5 ML VIAL ONE (07:16)
[2022-03-07] MEDS ORDERED: Lidocaine HCL 4 ML Topical Solution (Laryng-O-Jet Kit Sterile Pak) TP ONE (07:16)
[2022-03-07] MEDS ORDERED: *HR* Remifentanil 1 MG VIAL IVP ONE (07:28)
[2022-03-07] MEDS ORDERED: *HR* Phenylephrine 10 MG/ML VIAL ONE (07:36)
[2022-03-07] MEDS: Piperacillin/Tazobactam 3.375 GM in 0.9 % Sodium Chloride Mini Bag 100 ML IVPB SCH ×2 (07:43→16:16)
[2022-03-07] MEDS ORDERED: *HR* Vasopressin 20 UNIT/ML VIAL ONE (07:43)
[2022-03-07] MEDS: Insulin LISPRO 300 UNITS/3 ML VIAL SUBQ SCH ×4 (07:47→19:32)
[2022-03-07] MEDS ORDERED: *HR* HYDROMORPHONE 2 MG/ML VIAL ONE (10:05)
[2022-03-07] MEDS ORDERED: Acetaminophen IV 1,000 MG/100 ML BAG IVPB ONE (10:05)
[2022-03-07] MEDS ORDERED: flumazeniL 0.5 MG/5 ML VIAL IVP ONE (10:27)
[2022-03-07] MEDS ORDERED: Dextrose Gel 15 GM/37.5 ML TUBE PO PRN ×2 (11:05)
[2022-03-07] MEDS ORDERED: Naloxone 0.4 MG/ML INJ IVP PRN (11:05)
[2022-03-07] MEDS ORDERED: *HR* Dextrose 50 % in Water (Syg) 50 ML SYRINGE IVP PRN (11:05)
[2022-03-07] MEDS ORDERED: D5% in Water 1,000 ML IVC PRN (11:05)
[2022-03-07] MEDS ORDERED: Perflutren Lipid Microsphere 1.3 ML in 0.9 % Sodium Chloride 8.7 ML IVP PRN (11:05)
[2022-03-07] MEDS: *HR* HYDROmorphone (PF) 1 MG/ML SYRINGE IVP PRN (11:22)
[2022-03-07] MEDS: Dexmedetomidine HCl 400 MCG/100 ML MLS IVC SCH (11:51)
[2022-03-07] MEDS ORDERED: *HR* HYDROmorphone (PF) 1 MG/ML SYRINGE IVP ONE (12:30)
[2022-03-07] MEDS ORDERED: Vancomycin 1,750 MG/517.5 ML IV.SOLN IVPB SCH ×2 (14:00)
[2022-03-07] MEDS: Gabapentin 300 MG CAPSULE PO SCH ×2 (15:27→19:32)
[2022-03-08] MEDS: *HR* HYDROcodone/Acet 5/325 mg TABLET PO PRN ×5 (00:01→23:59)
[2022-03-08] MEDS: Piperacillin/Tazobactam 3.375 GM in 0.9 % Sodium Chloride Mini Bag 100 ML IVPB SCH ×4 (00:12→23:59)
[2022-03-08] MEDS: *HR* HYDROmorphone (PF) 1 MG/ML SYRINGE IVP PRN (02:14)
[2022-03-08] MEDS: Ipratropium/Albuterol Neb 3 ML IH PRN (05:54)
[2022-03-08] MEDS: *HR* Heparin 5,000 UNIT/ML VIAL SQ SCH ×3 (05:59→21:16)
[2022-03-08] MEDS: Dexmedetomidine HCl 400 MCG/100 ML MLS IVC SCH (07:11)
[2022-03-08] MEDS: Gabapentin 300 MG CAPSULE PO SCH ×3 (07:45→19:33)
[2022-03-08] MEDS: Insulin LISPRO 300 UNITS/3 ML VIAL SUBQ SCH ×4 (07:50→21:26)
[2022-03-08 07:57] LABS: Hemoglobin 10.4 g/dL (11.5-15.4); Mean Corpuscular Hemoglobin 24.9 pg (28.0-33.3); Red Cell Distribution Width 16.8 % (11.5-14.5)
[2022-03-08 07:58] LABS: VBG Ionized Calcium 1.18 mmol/L (1.15-1.35)
[2022-03-08 07:58] LABS: Hematocrit 37.3 % (35.3-44.9); Mean Corpuscular HGB Conc 27.9 g/dL (31.6-35.5); Mean Corpuscular Volume 89.2 fL (83.0-100.0); Mean Platelet Volume 9.5 fL (9.4-12.4); Platelet Count 272 K/mcL (140-400); Red Blood Count 4.18 M/mcL (3.82-4.97)
[2022-03-08 08:11] LABS: Calcium 8.8 mg/dL (8.6-10.3); Potassium 4.5 mEq/L (3.5-5.1)
[2022-03-08 08:12] LABS: Magnesium 2.2 mg/dL (1.6-2.6); Phosphorous 4.3 mg/dL (2.7-4.5)
[2022-03-08] MEDS ORDERED: polyethylene glycoL 3350 17 GM POWD.PACK PO PRN (10:03)
[2022-03-08 11:25] LABS: Basophils # 0.1 K/mcL (0.0-0.2); Lymphocytes # 1.9 K/mcL (0.6-4.6); Monocytes # 0.1 K/mcL (0.0-1.3); Neutrophils # 5.9 K/mcL (1.6-8.9)
[2022-03-08 11:26] LABS: Anisocytosis 1+ (Not Present); Hypochromasia Present (Not Present); Platelet Estimate Normal (Normal)
[2022-03-08] MEDS: Sennosides/Docusate Sodium TABLET PO SCH (19:36)
[2022-03-09] MEDS: *HR* HYDROcodone/Acet 5/325 mg TABLET PO PRN ×4 (04:23→19:45)
[2022-03-09] MEDS: *HR* Heparin 5,000 UNIT/ML VIAL SQ SCH ×3 (06:03→21:37)
[2022-03-09 06:25] LABS: Hemoglobin 9.6 g/dL (11.5-15.4); Mean Corpuscular HGB Conc 28.2 g/dL (31.6-35.5)
[2022-03-09 06:26] LABS: Mean Corpuscular Hemoglobin 24.8 pg (28.0-33.3); Mean Corpuscular Volume 87.9 fL (83.0-100.0); Mean Platelet Volume 9.9 fL (9.4-12.4); Platelet Count 284 K/mcL (140-400); Red Blood Count 3.87 M/mcL (3.82-4.97); White Blood Count 8.4 K/mcL (4.3-11.1)
[2022-03-09 06:52] LABS: BUN/Creatinine Ratio 22 (6-26); Blood Urea Nitrogen 23 mg/dL (8-23); Calcium 8.7 mg/dL (8.6-10.3); Carbon Dioxide 37 mEq/L (23-29); Chloride 99 mEq/L (98-107); Glucose 142 mg/dL (70-105); Osmolality,Calculated 294 (280-300); Potassium 4.6 mEq/L (3.5-5.1); Sodium 139 mEq/L (136-145); eGFR For African Americans > 60 (> 60); eGFR For Non-African Americans 55 (> 60)
[2022-03-09] MEDS: Sennosides/Docusate Sodium TABLET PO SCH ×2 (07:33→19:44)
[2022-03-09] MEDS: Gabapentin 300 MG CAPSULE PO SCH ×3 (07:33→19:44)
[2022-03-09] MEDS: Piperacillin/Tazobactam 3.375 GM in 0.9 % Sodium Chloride Mini Bag 100 ML IVPB SCH ×2 (07:33→15:29)
[2022-03-09] MEDS: Insulin LISPRO 300 UNITS/3 ML VIAL SUBQ SCH ×4 (10:10→21:21)
[2022-03-09] MEDS: Acetaminophen 325 MG TABLET PO PRN (15:28)
[2022-03-09] MEDS: GuaiFENesin/Codeine Oral Soln 5 ML UDC PO PRN (21:38)
[2022-03-09] MEDS ORDERED: Ketorolac 30 MG/ML VIAL IVP ONE (21:40)
[2022-03-09] MEDS: Melatonin 3 MG TABLET PO PRN (22:19)
[2022-03-10] MEDS: *HR* HYDROcodone/Acet 5/325 mg TABLET PO PRN ×4 (03:15→20:58)
[2022-03-10] MEDS: GuaiFENesin/Codeine Oral Soln 5 ML UDC PO PRN ×4 (04:28→22:57)
[2022-03-10] MEDS: *HR* Heparin 5,000 UNIT/ML VIAL SQ SCH ×3 (05:01→20:58)
[2022-03-10] MEDS ORDERED: Ketorolac 30 MG/ML VIAL IVP ONE (05:47)
[2022-03-10] MEDS: Piperacillin/Tazobactam 3.375 GM in 0.9 % Sodium Chloride Mini Bag 100 ML IVPB SCH ×4 (08:01→22:57)
[2022-03-10] MEDS: Sennosides/Docusate Sodium TABLET PO SCH ×2 (08:01→20:58)
[2022-03-10] MEDS: Gabapentin 300 MG CAPSULE PO SCH ×3 (08:01→20:57)
[2022-03-10] MEDS: Insulin LISPRO 300 UNITS/3 ML VIAL SUBQ SCH ×4 (08:02→21:51)
[2022-03-10] MEDS: Ketorolac 30 MG/ML VIAL IVP PRN ×2 (15:30→21:57)
[2022-03-10] MEDS: Acetaminophen 325 MG TABLET PO PRN (18:39)
[2022-03-10] MEDS: Melatonin 3 MG TABLET PO PRN (23:19)
[2022-03-11] MEDS: *HR* Heparin 5,000 UNIT/ML VIAL SQ SCH ×2 (06:00→13:46)
[2022-03-11] MEDS: GuaiFENesin/Codeine Oral Soln 5 ML UDC PO PRN (06:00)
[2022-03-11] MEDS: *HR* HYDROcodone/Acet 5/325 mg TABLET PO PRN ×3 (06:00→15:50)
[2022-03-11] MEDS: Sennosides/Docusate Sodium TABLET PO SCH (08:06)
[2022-03-11] MEDS: Piperacillin/Tazobactam 3.375 GM in 0.9 % Sodium Chloride Mini Bag 100 ML IVPB SCH (08:06)
[2022-03-11] MEDS: Insulin LISPRO 300 UNITS/3 ML VIAL SUBQ SCH ×2 (08:06→12:38)
[2022-03-11] MEDS: Gabapentin 300 MG CAPSULE PO SCH ×2 (08:07→15:50)
[2022-03-11 11:34] VITALS: BP 136/91; PULSE 83; TEMP 97.8; O2SAT 91
== END 2022-03-11 16:10 | disposition home or self-care (01) | DRG 853 ==
LOC: 2NENU 19:32 → EMEROOARM 19:32 → SUATTDRO 03-03 06:47 → 2NENU 03-03 07:34 → ICNU 03-04 12:18 → SUATTDRO 03-06 17:15 → 2NENU 03-09 04:00
PROVIDERS: ADMIT Internal Medicine; ATTEND Internal Medicine